=== PATIENT | female | born 1970 | race Caucasian/White ===

== ENCOUNTER 2016-11-23 14:29 | Outpatient (CLI) | payer MEDICARE ==
[2016-11-23 21:34] LABS: #Basophils 0.1 thou/uL (0.0-0.2); #Eosinphils 0.1 thou/uL (0.0-0.7); #Lymphocytes 1.7 thou/uL (1.20-3.40); #Monocytes 0.5 thou/uL (0.11-0.59); #Neutrophils 4.5 thou/uL (1.40-6.50); %Basophils 0.9 % (0.0-1.0); %Eosinophils 1.2 % (0.0-10.0); %Lymphocytes 24.6 % (21.0-51.0); %Monocytes 6.6 % (0.0-10.0); %Neutrophils 66.7 % (42.0-75.0); Hemoglobin 12.3 g/dL (12.0-16.0); Mean Corpuscular HGB CONC 30.3 g/dL (32.0-36.0); Mean Corpuscular Hemoglobin 25.8 pg (27.0-31.0); Mean Corpuscular Volume 85.1 fl (81.0-99.0); Platelet Count 267 thou/uL (130-400); Red Blood Cell (RBC) Count 4.78 mill/uL (4.20-5.40); White Blood Cell (WBC) Count 6.8 thou/uL (4.8-10.8)
[2016-11-23 21:46] LABS: Hemoglobin A1c 5.3 % (4.0-6.0)
[2016-11-23 21:49] LABS: ALT (SGPT) 23 U/L (8-55); AST (SGOT) 26 U/L (5-34); Albumin 4.1 g/dL (3.5-5.0); Alkaline Phosphatase 111 U/L (40-150); Anion Gap 17 mmol/L (10-20); BUN (Urea Nitrogen) 6 mg/dL (7.0-18.7); Bilirubin, Direct 0.2 mg/dL (0.1-0.3); Bilirubin, Total 0.5 mg/dL (0.2-1.2); Calc. Creatinine Clearance 0 mL/min (70-130); Calcium 9.3 mg/dL (7.8-10.44); Carbon Dioxide 24 mmol/L (22-29); Cardiac Risk 3.3 (Less than 4.5); Chloride 104 mmol/L (98-107); Cholesterol 201 mg/dl (< 200 Desired); Estimated GFR-MDRD 59; Glucose 98 mg/dL (70-105); HDL Cholesterol 61 mg/dL (>60 Neg Risk); LDL Cholesterol, Calculated 123 mg/dL; Potassium 3.8 mmol/L (3.5-5.1); Protein, Total 6.2 g/dL (6.0-8.3); Sodium 141 mmol/L (136-145); Triglycerides 83 mg/dL (Less than 150)
== END 2016-11-23 14:30 | disposition home or self-care (01) ==
LOC: NAVSJIPCSP 14:29
PROVIDERS: ATTEND Family Medicine
DX: E11.9 Type 2 diabetes mellitus without complications (principal); E78.00 Pure hypercholesterolemia, unspecified; K21.0 Gastro-esophageal reflux disease with esophagitis; J45.20 Mild intermittent asthma, uncomplicated; J30.89 Other allergic rhinitis; I10 Essential (primary) hypertension
CPT/HCPCS: 36415; 80048; 80061; 80076; 83036; 84443; 85025